=== PATIENT | male | born 1985 | race Two or more races ===

== ENCOUNTER 2022-07-20 19:51 | Emergency (ER) | payer MEDICAID ==
[~2022-07-20] VITALS: Ht 180.3 cm; Wt 88.5 kg
[2022-07-20] MEDS ORDERED: OSEL75CA PO (22:07)
[2022-07-20] MEDS ORDERED: OSELTAMIVIR PHOSPHATE 75 MG CAPSULE ONE (23:12)
--- NOTE | 2022-07-20 23:13 | NUR ---
Seen by ER MD informed of plan of care no s/s of any distress noted, medicated as per order. Okay for discharge home with family. ACI given remains stable.
[2022-07-20 23:14] VITALS: BP 107/73
[2022-07-20] MEDS ORDERED: OSELTAMIVIR PHOSPHATE 75 MG CAPSULE PO ONE (23:15)
== END 2022-07-20 23:15 | disposition home or self-care (01) ==
LOC: ER 19:51
DX: J10.1 Influenza due to other identified influenza virus with other respiratory manifestations (principal)
CPT/HCPCS: A4663